=== PATIENT | male | born 1995 | race Caucasian/White ===

== ENCOUNTER 2017-10-25 22:48 | Emergency (ER) | END 2017-10-26 02:25 | disposition left against medical advice (07) ==

== ENCOUNTER 2018-01-09 13:43 | Emergency (ER) | END 2018-01-09 14:07 | disposition home or self-care (01) ==

== ENCOUNTER 2018-08-20 20:31 | Emergency (ER) | END 2018-08-20 21:50 | disposition home or self-care (01) ==

== ENCOUNTER 2019-05-07 22:29 | Emergency (ER) | payer OTHER ==
[~2019-05-07] VITALS: Ht 172.7 cm; Wt 97.7 kg
[~2019-05-07 22:29] MED LIST: AMOX1TAB10 PO; CLIN300C10 PO; HYDR-3498 PO; HYDR-4011 PO; IBUP-1542 PO; NAPR-985 PO; NO MEDS
[2019-05-07 22:36] VITALS: BP 151/98; PULSE 92; RESP 20; Ht 172.7 cm; Wt 97.7 kg
== END 2019-05-07 23:22 | disposition home or self-care (01) ==
LOC: FTE 22:29
DX: L29.9 Pruritus, unspecified (principal)
CPT/HCPCS: 99282